=== PATIENT | female | born 1965 | race Hispanic/Latino ===

== ENCOUNTER 2017-12-13 10:42 | Inpatient (IN) | payer MEDICARE ==
[~2017-12-13] VITALS: Ht 149.9 cm; Wt 91.6 kg
[2017-12-13 10:55] LABS: BASOPHILS % (AUTO) 0.5 % (0.0-5.0); HEMATOCRIT 42.2 % (36-48); LYMPHOCYTES % (AUTO) 17.6 % (21.0-51.0); MEAN CORPUSCULAR HEMOGLOBIN 32.2 pg (27.0-33.0); MEAN CORPUSCULAR HGB CONC 35.4 g/dL (32.0-36.0); MONOCYTES % (AUTO) 3.6 % (3.0-13.0); NEUTROPHILS % (AUTO) 78.3 % (40.0-77.0); PLATELET COUNT (AUTO) 290 K/uL (130-400); RED BLOOD CELL COUNT(AUTO) 4.64 MIL/uL (4.00-5.50); RED CELL DISTRIBUTION WIDTH 12.9 % (11.0-15.5); WHITE BLOOD COUNT (AUTO) 12.4 K/uL (4.8-10.8)
[2017-12-13 11:08] LABS: BILIRUBIN,TOTAL 0.6 mg/dL (0.2-1.0); CREATININE 1.5 mg/dL (0.5-1.5); POTASSIUM 5.6 mmol/L (3.5-5.1); TOTAL PROTEIN, SERUM 8.5 g/dL (6.0-8.3)
[2017-12-13] MEDS ORDERED: SODIUM CHLORIDE 0.9% 1000ML 1,000 ML IV ONE (11:27)
[2017-12-13] MEDS ORDERED: CALCITONIN 200 UNITS/ML 2 ML VIAL SQ SCH (12:00)
[2017-12-13 12:08] LABS: T4 (THYROXINE) 4.5 mcg/dL (4.7-13.3); THYROID STIMULATING HORMONE 9.56 uIU/mL (0.36-3.74)
[2017-12-13] MEDS ORDERED: SODIUM POLYSTYRENE SULFONATE 15 GM/60 ML ML ONE (12:30)
[2017-12-13] MEDS ORDERED: SODIUM CHLORIDE 0.9% 500ML 500 ML IV ONE (13:03)
[2017-12-13 15:22] VITALS: BP 164/77
[2017-12-13] MEDS: SODIUM CHLORIDE 0.9% 1000ML 1,000 ML IV SCH ×2 (16:22→20:49)
[2017-12-13] MEDS ORDERED: HYDR100T27 PO (18:13)
[2017-12-13] MEDS ORDERED: ATOR-2 PO (18:13)
[2017-12-13] MEDS ORDERED: CALC0.5C11 PO (18:13)
[2017-12-13] MEDS ORDERED: CALC500O PO (18:13)
[2017-12-13] MEDS ORDERED: CHOL100040 PO (18:13)
[2017-12-13] MEDS ORDERED: POTA-79 PO (18:13)
[2017-12-13] MEDS ORDERED: CARV3.12 PO (18:13)
[2017-12-13] MEDS ORDERED: AMLO10TA2 PO (18:13)
[2017-12-13] MEDS ORDERED: VALS1TAB81 PO (18:13)
[2017-12-13] MEDS ORDERED: LEVO50TA11 PO (18:13)
[2017-12-13] MEDS ORDERED: MAGN64TA13 PO (18:13)
[2017-12-13] MEDS ORDERED: CLOP75TA32 PO (18:13)
[2017-12-13] MEDS ORDERED: ASPI-1197 PO (18:13)
[2017-12-13] MEDS ORDERED: GLUCAGON 1MG KIT 1 MG ML IM PRN (18:30)
[2017-12-13] MEDS ORDERED: DEXTROSE 50%-WATER 50 ML DISP.SYRIN IV PRN (18:30)
[2017-12-13 19:46] VITALS: BP 167/98
[2017-12-13] MEDS: INSULIN HUMULIN R 100 UNIT/ML 3ML SQ SCH (20:26)
[2017-12-13] MEDS: CALCITONIN 3.7 ML AEROSOL NS SCH (22:15)
[2017-12-13 22:21] LABS: APPEARANCE,URINE Clear (CLEAR); BILIRUBIN,URINE Negative (NEGATIVE); COLOR,URINE Yellow (YELLOW); GLUCOSE, URINE (UA) Negative (NEGATIVE); KETONES,URINE Negative (NEGATIVE); LEUKOCYTE ESTERASE ,URINE Trace (NEGATIVE); NITRATE,URINE Negative (NEGATIVE); OCCULT BLOOD,URINE Negative (NEGATIVE); PH,URINE 6.5 (5.0-8.0); PROTEIN,URINE Negative (NEGATIVE); UROBILINOGEN,URINE 0.2 mg/dL (0.2-1.0)
[2017-12-13 22:41] LABS: BACTERIA,URINE Few /HPF (None Seen); RBC,URINE 0-1 /HPF (0-1); SQUAMOUS EPITHELIAL CELL,UR Moderate /HPF (0-2)
[2017-12-13] MEDS ORDERED: LACTULOSE 20 GM/30 ML UDCUP PO PRN (23:00)
[2017-12-13] MEDS ORDERED: ONDANSETRON HCL MDV 20ML 2 MG/ML VIAL IVP PRN (23:00)
[2017-12-13] MEDS ORDERED: HYDRALAZINE HCL 20 MG/ML VIAL IV PRN (23:00)
[2017-12-13] MEDS ORDERED: ACETAMINOPHEN 325 MG TAB PO PRN (23:00)
[2017-12-14] VITALS: BP 138/67
[2017-12-14 04:00] VITALS: BP 142/68
[2017-12-14] MEDS: SODIUM CHLORIDE 0.9% 1000ML 1,000 ML IV SCH ×4 (04:20→20:49)
[2017-12-14] MEDS: INSULIN HUMULIN R 100 UNIT/ML 3ML SQ SCH ×4 (05:52→20:55)
[2017-12-14 06:07] LABS: BASOPHILS % (AUTO) 0.5 % (0.0-5.0); EOSINOPHILS % (AUTO) 0.4 % (0.0-8.0); HEMATOCRIT 38.2 % (36-48); LYMPHOCYTES % (AUTO) 30.4 % (21.0-51.0); MEAN CORPUSCULAR HEMOGLOBIN 32.3 pg (27.0-33.0); MEAN CORPUSCULAR HGB CONC 35.5 g/dL (32.0-36.0); MEAN CORPUSCULAR VOLUME 90.8 fL (79-99); MONOCYTES % (AUTO) 5.7 % (3.0-13.0); PLATELET COUNT (AUTO) 275 K/uL (130-400); RED BLOOD CELL COUNT(AUTO) 4.21 MIL/uL (4.00-5.50); RED CELL DISTRIBUTION WIDTH 12.9 % (11.0-15.5); WHITE BLOOD COUNT (AUTO) 11.3 K/uL (4.8-10.8)
[2017-12-14 06:15] LABS: CREATININE 1.5 mg/dL (0.5-1.5)
[2017-12-14 06:21] LABS: POTASSIUM 2.9 mmol/L (3.5-5.1)
[2017-12-14] MEDS ORDERED: POTASSIUM CHLORIDE 20 MEQ/100 ML BAG IV SCH (06:45)
[2017-12-14 07:06] VITALS: BP 141/71
[2017-12-14] MEDS ORDERED: POTASSIUM CHLORIDE 20MEQ/100ML 100 ML IV SCH (07:15)
[2017-12-14] MEDS: PANTOPRAZOLE SODIUM 40 MG TABLET.DR PO SCH (08:19)
[2017-12-14] MEDS: CALCITONIN 3.7 ML AEROSOL NS SCH (08:21)
[2017-12-14] MEDS: ENOXAPARIN SODIUM 30 MG/0.3 ML SQ SCH (08:21)
[2017-12-14] MEDS ORDERED: CALCITONIN 3.7 ML AEROSOL NS SCH (09:00)
[2017-12-14 11:00] VITALS: BP 155/62
[2017-12-14 15:00] VITALS: BP 144/82
[2017-12-14 19:41] VITALS: BP 163/97
[2017-12-15] VITALS: BP 139/75
[2017-12-15] MEDS: SODIUM CHLORIDE 0.9% 1000ML 1,000 ML IV SCH ×3 (03:44→21:22)
[2017-12-15 04:00] VITALS: BP 144/78
[2017-12-15] MEDS: INSULIN HUMULIN R 100 UNIT/ML 3ML SQ SCH ×4 (05:21→21:23)
[2017-12-15 05:40] LABS: BASOPHILS % (AUTO) 0.7 % (0.0-5.0); EOSINOPHILS % (AUTO) 1.1 % (0.0-8.0); HEMATOCRIT 32.6 % (36-48); LYMPHOCYTES % (AUTO) 36.1 % (21.0-51.0); MEAN CORPUSCULAR HEMOGLOBIN 32.4 pg (27.0-33.0); MEAN CORPUSCULAR HGB CONC 35.7 g/dL (32.0-36.0); MEAN CORPUSCULAR VOLUME 90.8 fL (79-99); NEUTROPHILS % (AUTO) 53.1 % (40.0-77.0); PLATELET COUNT (AUTO) 205 K/uL (130-400); RED BLOOD CELL COUNT(AUTO) 3.59 MIL/uL (4.00-5.50)
[2017-12-15 05:48] LABS: CREATININE 1.3 mg/dL (0.5-1.5)
[2017-12-15 05:51] LABS: POTASSIUM 2.8 mmol/L (3.5-5.1)
[2017-12-15] MEDS ORDERED: POTASSIUM CHLORIDE 20MEQ/100ML 100 ML IV SCH (07:00)
[2017-12-15] MEDS ORDERED: POTASSIUM CHLORIDE 20 MEQ/100 ML BAG IV SCH (07:00)
[2017-12-15] MEDS ORDERED: MAGNESIUM 2GM PREMIX 50ML 50 ML IV SCH (07:30)
[2017-12-15 07:58] VITALS: BP 142/70
[2017-12-15] MEDS: PANTOPRAZOLE SODIUM 40 MG TABLET.DR PO SCH (08:21)
[2017-12-15] MEDS: POTASSIUM CHLORIDE 20 MEQ ERTAB PO SCH ×2 (08:21→16:59)
[2017-12-15] MEDS: CALCITONIN 3.7 ML AEROSOL NS SCH (08:22)
[2017-12-15] MEDS: ENOXAPARIN SODIUM 30 MG/0.3 ML SQ SCH (08:22)
[2017-12-15 12:00] VITALS: BP 140/87
[2017-12-15 16:00] VITALS: BP 155/81
[2017-12-15 20:02] VITALS: BP 152/97
[2017-12-15] MEDS ORDERED: ATORVASTATIN CALCIUM 40 MG TABLET PO SCH (21:00)
[2017-12-15] MEDS: CARVEDILOL 3.125 MG TABLET PO SCH (21:21)
[2017-12-16 00:44] VITALS: BP 148/82
[2017-12-16 04:28] VITALS: BP 139/76
[2017-12-16 05:56] LABS: BASOPHILS % (AUTO) 0.7 % (0.0-5.0); EOSINOPHILS % (AUTO) 2.2 % (0.0-8.0); HEMATOCRIT 31.3 % (36-48); LYMPHOCYTES % (AUTO) 35.3 % (21.0-51.0); MEAN CORPUSCULAR HEMOGLOBIN 33.3 pg (27.0-33.0); MEAN CORPUSCULAR HGB CONC 36.7 g/dL (32.0-36.0); MEAN CORPUSCULAR VOLUME 90.8 fL (79-99); MONOCYTES % (AUTO) 7.5 % (3.0-13.0); NEUTROPHILS % (AUTO) 54.3 % (40.0-77.0); PLATELET COUNT (AUTO) 204 K/uL (130-400); RED BLOOD CELL COUNT(AUTO) 3.44 MIL/uL (4.00-5.50); RED CELL DISTRIBUTION WIDTH 12.8 % (11.0-15.5); WHITE BLOOD COUNT (AUTO) 7.7 K/uL (4.8-10.8)
[2017-12-16 06:05] LABS: CREATININE 1.2 mg/dL (0.5-1.5)
[2017-12-16] MEDS: INSULIN HUMULIN R 100 UNIT/ML 3ML SQ SCH ×3 (06:28→16:30)
[2017-12-16] MEDS ORDERED: LEVOTHYROXINE 50 MCG TABLET PO SCH (06:30)
[2017-12-16] MEDS: POTASSIUM CHLORIDE 20 MEQ ERTAB PO SCH ×3 (07:00→16:39)
[2017-12-16] MEDS: SODIUM CHLORIDE 0.9% 1000ML 1,000 ML IV SCH ×2 (07:05→11:45)
[2017-12-16 07:46] VITALS: BP 174/99
[2017-12-16] MEDS ORDERED: MAGNESIUM CHLORIDE 70 MG TABLET.SA PO SCH (09:00)
[2017-12-16] MEDS ORDERED: ASPIRIN 81MG TAB.CHEW PO SCH (09:00)
[2017-12-16] MEDS ORDERED: HYDRALAZINE HCL 25 MG TABLET PO SCH (09:00)
[2017-12-16] MEDS ORDERED: AMLODIPINE BESYLATE 5 MG TAB PO SCH (09:00)
[2017-12-16] MEDS ORDERED: CLOPIDOGREL BISULFATE 75 MG TAB PO SCH (09:00)
[2017-12-16 09:19] LABS: VITAMIN D, 25-HYDROXY 19.2 ng/mL (30.0-100.0)
[2017-12-16] MEDS: CARVEDILOL 3.125 MG TABLET PO SCH (09:19)
[2017-12-16] MEDS: PANTOPRAZOLE SODIUM 40 MG TABLET.DR PO SCH (09:19)
[2017-12-16] MEDS: CALCITONIN 3.7 ML AEROSOL NS SCH (09:21)
[2017-12-16] MEDS: ENOXAPARIN SODIUM 30 MG/0.3 ML SQ SCH (09:21)
[2017-12-16 12:00] VITALS: BP 155/92
== END 2017-12-16 17:15 | disposition home or self-care (01) | DRG 641 ==
LOC: EDH 10:42 → EDHIP 12:37 → 4BH 14:30
PROVIDERS: ADMIT Family Medicine; ATTEND Family Medicine
DX: E87.5 Hyperkalemia (principal); E86.0 Dehydration; E11.65 Type 2 diabetes mellitus with hyperglycemia; E83.52 Hypercalcemia; E78.5 Hyperlipidemia, unspecified; E89.0 Postprocedural hypothyroidism; I10 Essential (primary) hypertension; E78.00 Pure hypercholesterolemia, unspecified; E83.42 Hypomagnesemia; E87.6 Hypokalemia; Z86.73 Personal history of transient ischemic attack (TIA), and cerebral infarction without residual deficits; Z90.49 Acquired absence of other specified parts of digestive tract; Z90.710 Acquired absence of both cervix and uterus
CPT/HCPCS: 36415; 70450; 80048; 80053; 81001; 82306; 82330; 82550; 82948; 83735; 83970; 84132; 84436; 84443; 84481; 84484; 85025; 87088; 87186; 93005; 99291; J0630; J1650; J1815; J3475; J3480; J7030; J7040